=== PATIENT | male | born 1955 | race Caucasian/White ===

== ENCOUNTER → 2019-06-24 | Outpatient (CLI) | payer BC ==
--- NOTE | 2019-06-24 14:45 | RADIOLOGY REPORT (SQ) ---
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 TECHNIQUE: Post IV contrasted scanning from skull base through lung apices with review of bone, soft tissue and lung windows. Reconstructed coronal and sagittal MPR images reviewed. All images stored on PACS. All CT scanners at this facility use dose modulation, iterative reconstruction, and/or weight based d osing when appropriate to reduce radiation dose to as low as reasonably achievable (ALARA). [facility]: Dose Right [facility]: CareDose [facility]: Dose Right [facility]: Teradose 4D [facility]: [place] CONTRAST TYPE AND DOSE: contrast/concentration: Isovue 350.00 mg/ml; Total Contrast Delivered: 75.0 ml; Total Saline Delivered: 55.0 ml RENAL FUNCTION: Creatinine 0.8 RADIATION DOSE: 20 mGy . LIMITATIONS: None. FINDINGS: Patient is post resection of the right mandibular body. There is a plate and bone graft f rom the right alveolar ridge to the right condylar process. Along the plate, bone graft material is present. There is no incorporation of the bone graft with residual [place] bone. No lucency around t he hardware to suggest loosening or infection. However, there is a broad soft tissue defect along th e right chin/floor of mouth soft tissues 4 x 2 cm in size. No soft tissue defect extends from the sk in surface through the deep tissues up to the level of bone graft and fixation plate. This is best s hown on axial image 60 and sagittal image 36. Soft tissue windows demonstrate no recurrent soft tissue mass along the right floor of mouth/mandible . Patient is post right-sided cervical lymph node surgical dissection, resection of the right submandib ular gland in the submandibular triangle. No right-sided neck masses or adenopathy. Patient is also post surgery in the left submandibular triangle with resection of the submandibular g land. SKULL BASE: Inferior brain parenchyma unremarkable. MAJOR SALIVARY GLANDS: Parotid glands are intact. Submandibular glands have been resected. LYMPHADENOPATHY: No adenopathy. MUCOSAL MASSES OR ASYMMETRY: No mucosal masses or asymmetry. LARYNX/CORDS: No abnormal findings. VASCULAR STRUCTURES: The major vessels are patent. LUNG APICES: Clear. BONES: Postoperative changes to the mandible. Cervical spine degenerative disc changes at C5-6 and C 6-7 with mild to moderate bilateral foraminal narrowing. THYROID: Normal size. No masses. PARANASAL SINUSES: Clear. OTHER: Minimal debris in the trachea axial image 103 IMPRESSION: Post resection of the right mandible, bilateral submandibular triangle dissections, righ t cervical lymph node dissection. Soft tissue wound along the inferior aspect of the right mandible, extending up to the plate and bone graft material. No incorporation of the right-sided bone graft with [place] anterior alveolar ridge or [place] condylar process. TECHNICAL DOCUMENTATION: JOB ID: [id number] Quality ID # [id number]: Final reports with documentation of one or more dose reduction techniques (e.g., Au tomated exposure control, adjustment of the mA and/or kV according to patient size, use of iterative reconstruction technique) 2010 [employer]- All Rights Reserved Reading location - IP/workstation name: [email or web address]
== END ==
LOC: RAD 09:12
PROVIDERS: ATTEND Otolaryngology
DX: C41.1 Malignant neoplasm of mandible (principal); M50.323 Other cervical disc degeneration at C6-C7 level; M48.02 Spinal stenosis, cervical region
CPT/HCPCS: 70491; 82565

== ENCOUNTER → 2020-04-19 | Outpatient (CLI) | payer BC ==
--- NOTE | 2020-04-19 15:19 | RADIOLOGY REPORT (SQ) ---
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 Status post resection. COMPARISON: 06/24/2019 TECHNIQUE: Noncontrast scanning from skull base through lung apices with review of bone, soft tissue and lung windows. Reconstructed coronal and sagittal MPR images reviewed. All images stored on PAC S. All CT scanners at this facility use dose modulation, iterative reconstruction, and/or weight based d osing when appropriate to reduce radiation dose to as low as reasonably achievable (ALARA). [facility]: Dose Right [facility]: CareDose [facility]: Dose Right [facility]: Teradose 4D [facility]: [employer] RADIATION DOSE: mGy. LIMITATIONS: Evaluation of the soft tissues is limited without IV contrast. FINDINGS: Status post resection of the right mandibular body with surgical clips in the right subman dibular region and anterior right and left neck consistent with lymph node dissection. Atrophy bilat eral submandibular glands, stable from prior. Bilateral parotid glands are symmetric with normal jan earance. On the right, along the posterior margin of the surgical bed and superficial to the surgica l clips, there is increasing soft tissue attenuation at this location measuring about 2.2 x 2 cm, pre viously 1.8 x 1.6 cm when measured similarly on prior contrast-enhanced CT. Evaluation of the soft t issue is extremely limited without IV contrast. This area blends with adjacent vasculature and the s ternocleidomastoid muscle and is indeterminate possibly representing postradiation change versus tumo r recurrence. Post radiation changes in the submandibular region subcutaneous fat. Tongue base is s ymmetric. Larynx and trachea have a normal appearance. The thyroid gland is unremarkable. No supra clavicular adenopathy. Visualized lung apices demonstrate mild pulmonary emphysema. Scattered subpl eural nodules at the upper lobes bilaterally are stable. No new pulmonary nodules or focal consolida tion. Visualized intracranial contents unremarkable. A globes and intraconal soft tissues have a no rmal appearance. There is polypoid mucosal thickening posterior left maxillary sinus stable from joyce or. No air-fluid levels. IMPRESSION: 1. Postsurgical changes in the right mandible and soft tissues with increasing soft tissue attenuatio n superficial to the surgical clips just posterior to the right mandible, indeterminate. This may re present tumor recurrence or postsurgical change. This is difficult to evaluate without IV contrast a nd further evaluation with contrast-enhanced soft tissue CT of the neck, MRI with contrast, or possib ly PET scan may provide additional information. TECHNICAL DOCUMENTATION: JOB ID: [id number] Quality ID # [id number]: Final reports with documentation of one or more dose reduction techniques (e.g., Au tomated exposure control, adjustment of the mA and/or kV according to patient size, use of iterative reconstruction technique) 2010 [employer]- All Rights Reserved Reading location - IP/workstation name: [email or web address]
== END ==
LOC: RAD 07:54
PROVIDERS: ATTEND Otolaryngology
DX: C06.9 Malignant neoplasm of mouth, unspecified (principal)
CPT/HCPCS: 70490